=== PATIENT | female | born 1985 | race Two or more races ===

== ENCOUNTER 2025-06-30 11:12 | Emergency (ER) | payer OTHER ==
[~2025-06-30] VITALS: Ht 152.4 cm; Wt 63.5 kg
[2025-06-30] MEDS ORDERED: ACETAMINOPHEN ES 500 MG TABLET ONE (12:11)
[2025-06-30] MEDS: ACETAMINOPHEN ES 500 MG TABLET PO ONE (12:13)
[2025-06-30 14:07] VITALS: BP 139/86; TEMP 98.5; O2SAT 100
== END 2025-06-30 14:10 | disposition home or self-care (01) ==
LOC: ER 11:39
DX: S20.219A Contusion of unspecified front wall of thorax, initial encounter (principal); V49.40XA Driver injured in collision with unspecified motor vehicles in traffic accident, initial encounter; Y93.89 Activity, other specified; Y92.410 Unspecified street and highway as the place of occurrence of the external cause; Y99.9 Unspecified external cause status
CPT/HCPCS: 71045-TC